=== PATIENT | male | born 2000 | race Caucasian/White ===

== ENCOUNTER 2020-04-17 18:08 | Emergency (ER) | payer OTHER ==
[~2020-04-17] VITALS: Ht 177.8 cm; Wt 75.0 kg
[2020-04-17 18:23] VITALS: BP 130/75
[2020-04-17] MEDS ORDERED: LIDOcaine 5% patch TP STA (20:07)
[2020-04-17] MEDS ORDERED: ketorolac tromethamine 15mg/ml inj. IM ONE (20:10)
[2020-04-17] MEDS ORDERED: IBUP-1985 PO (20:15)
[2020-04-17] MEDS ORDERED: LIDO700A32 TOP (20:15)
--- NOTE | 2020-04-17 20:20 | NUR ---
PT TO [facility]
--- NOTE | 2020-04-17 20:25 | NUR ---
PT BACK FROM [facility]
[2020-04-17] MEDS ORDERED: TRIA15CR61 TOP (20:32)
--- NOTE | 2020-04-17 20:48 | NUR ---
MEDICATED PATIENT WIH TORADOL IM AND LIDOCAINE PATCH . DISCUSSED BACK EXERCISES AND STRENGTHING EXERCISES. PT IS TO REST HIS BACK AND APPLY LIDOCIANE PATCHES Q 12 HRS NEEDED FOR PAIN . INSTRUCTED PT TO RETURN TO THE ER IF HE HAS INCREASED PAIN KNUBNESS OR TINGLING IN HIS LEGS OR FEET . PT VERBALIZED UNDERSATDNING AMBUALTED OFF UNIT WITH STEADY DISCHARGED HOME
== END 2020-04-17 20:36 | disposition home or self-care (01) ==
LOC: ER 18:08
DX: S39.012A Strain of muscle, fascia and tendon of lower back, initial encounter (principal); Z88.8 Allergy status to other drugs, medicaments and biological substances; Z79.899 Other long term (current) drug therapy; X58.XXXA Exposure to other specified factors, initial encounter; Y93.89 Activity, other specified; Y92.89 Other specified places as the place of occurrence of the external cause; Y99.8 Other external cause status
CPT/HCPCS: 72100; 96372; 99283; J1885

== ENCOUNTER 2020-12-03 09:05 | Emergency (ER) | payer OTHER ==
[~2020-12-03] VITALS: Ht 177.8 cm; Wt 75.0 kg
[~2020-12-03 09:05] MED LIST: IBUP-1985 PO; LIDO700A32 TOP
[2020-12-03 09:36] VITALS: BP 114/61
== END 2020-12-03 11:57 | disposition home or self-care (01) ==
LOC: ER 09:05
DX: S90.822A Blister (nonthermal), left foot, initial encounter (principal); Z88.6 Allergy status to analgesic agent; Z79.899 Other long term (current) drug therapy; X58.XXXA Exposure to other specified factors, initial encounter; Y93.89 Activity, other specified; Y92.89 Other specified places as the place of occurrence of the external cause; Y99.8 Other external cause status
CPT/HCPCS: 99281

== ENCOUNTER 2021-05-18 05:34 | Emergency (ER) | payer OTHER ==
[~2021-05-18] VITALS: Ht 177.8 cm; Wt 70.5 kg
[2021-05-18 05:39] VITALS: BP 115/76
--- NOTE | 2021-05-18 05:41 | NUR ---
HERE FOR A RAPID SO HE CAN GO BACK TO WORK.
== END 2021-05-18 06:59 | disposition home or self-care (01) ==
LOC: ER 05:34
DX: U07.1 COVID-19 (principal); R05 Cough; Z88.6 Allergy status to analgesic agent; Z79.899 Other long term (current) drug therapy
CPT/HCPCS: 87635; 99283; C9803

== ENCOUNTER 2021-05-27 11:53 | Emergency (ER) | payer OTHER ==
[~2021-05-27] VITALS: Ht 172.7 cm; Wt 72.7 kg
[2021-05-27 13:02] VITALS: BP 116/71
== END 2021-05-27 14:24 | disposition home or self-care (01) ==
LOC: ER 11:53
DX: Z20.822 Contact with and (suspected) exposure to COVID-19 (principal); Z88.6 Allergy status to analgesic agent; Z79.899 Other long term (current) drug therapy
CPT/HCPCS: 87635; 99283; C9803

== ENCOUNTER 2022-01-29 08:46 | Emergency (ER) | payer OTHER ==
[~2022-01-29] VITALS: Ht 177.8 cm; Wt 68.2 kg
[2022-01-29 09:54] LABS: BASOPHILS # (AUTO) 0.1 X10'3 (0-0.2); BASOPHILS % (AUTO) 1.3 % (0-1); EOSINOPHILS # (AUTO) 1.3 X10'3 (0-0.9); HEMATOCRIT 42.3 % (42.0-52.0); HEMOGLOBIN 14.5 g/dl (14.0-17.9); LYMPHOCYTES # (AUTO) 1.3 X10'3 (1.1-4.8); LYMPHOCYTES % (AUTO) 26.3 % (21-51); MEAN CORPUSCULAR HEMOGLOBIN 33.3 PG (27.0-31.0); MEAN CORPUSCULAR HGB CONC 34.4 g/dL (33.0-36.5); MEAN CORPUSCULAR VOLUME 96.9 FL (78-98); MEAN PLATELET VOLUME 6.7 FL (7.4-10.4); MONOCYTES # (AUTO) 0.5 X10'3 (0-0.9); MONOCYTES % (AUTO) 9.7 % (2-12); NEUTROPHILS # (AUTO) 1.9 X10'3 (1.8-7.7); NEUTROPHILS % (AUTO) 36.7 % (42-75); PLATELET COUNT 276 X10'3 (140-440); RED BLOOD COUNT 4.36 X10'6 (4.70-6.10); RED CELL DISTRIBUTION WIDTH 12.9 % (11.5-14.5); WHITE BLOOD COUNT 5.1 X10'3 (4.5-11.0)
[2022-01-29 10:07] LABS: ALANINE AMINOTRANSFERASE 23 U/L (12-78); ALBUMIN 3.9 G/DL (3.4-5.0); ALBUMIN/GLOBULIN RATIO 1.1 (1.1-1.5); ALKALINE PHOSPHATASE 59 IU/L (46-116); ANION GAP 4 (8-16); ASPARTATE AMINO TRANSFERASE 23 U/L (10-37); BILIRUBIN,TOTAL 1.3 MG/DL (0.1-1.0); BLOOD UREA NITROGEN 15 MG/DL (7-18); BUN/CREATININE RATIO 15.6 (5.4-32.0); CALCIUM 9.1 MG/DL (8.5-10.1); CHLORIDE 105 MMOL/L (99-107); CREATININE 0.96 MG/DL (0.60-1.10); GLUCOSE 53 MG/DL (70-104); POTASSIUM 3.6 MMOL/L (3.5-5.1); SODIUM 141 MMOL/L (135-145); TOTAL CARBON DIOXIDE 32.4 MMOL/L (24-32); TOTAL PROTEIN 7.5 G/DL (6.4-8.2); eGFR > 90 ML/MIN
[2022-01-29 10:18] LABS: PLATELET ESTIMATE NORMAL; TOTAL CELLS COUNTED 100
[2022-01-29] MEDS ORDERED: OMEP40CA21 PO (11:06)
[2022-01-29 11:25] VITALS: BP 122/81
[2022-01-29 11:50] LABS: H PYLORI ANTIBODY NEGATIVE (Neg)
== END 2022-01-29 11:20 | disposition home or self-care (01) ==
LOC: ER 08:46
DX: K29.70 Gastritis, unspecified, without bleeding (principal); Z88.8 Allergy status to other drugs, medicaments and biological substances; Z79.899 Other long term (current) drug therapy
CPT/HCPCS: 36415; 80053; 85007; 85025; 86677; 99283